=== PATIENT | male | born 1945 | race Caucasian/White ===

== ENCOUNTER 2017-03-06 16:07 | Emergency (ER) | payer MEDICARE, OTHER ==
[~2017-03-06] VITALS: Ht 175.3 cm; Wt 89.0 kg
[~2017-03-06 16:07] MED LIST: AMOX500T PO; BUPR-197 PO; CALTTAB PO; CARB0.5D16 EACH EYE; LACTCAP7 PO; LORA1TAB PO; NAPR-573 PO; OMEG100037 PO; PARO40TA PO; SLO-500T2 PO; SUPETAB30 PO; TERA2CAP3 PO; VITATAB11 PO; ZOLP10TA3 PO
[2017-03-06 16:08] VITALS: BP 160/77; PULSE 97; RESP 15; TEMP 97.3; O2SAT 99
[2017-03-06] MEDS ORDERED: CALC1TAB12 PO (16:27)
[2017-03-06] MEDS ORDERED: MULTTAB67 PO (16:27)
[2017-03-06] MEDS ORDERED: BUPR75TA PO (16:27)
[2017-03-06] MEDS ORDERED: LORA1TAB12 PO (16:27)
[2017-03-06] MEDS ORDERED: FISHCAP4 PO (16:27)
[2017-03-06] MEDS ORDERED: VENL75TA PO (16:27)
[2017-03-06] MEDS ORDERED: TAMS0.4C4 PO (16:27)
[2017-03-06] MEDS ORDERED: VITACAP7 PO (16:27)
[2017-03-06] MEDS ORDERED: CYCL1TAB29 PO ×2 (16:53→17:00)
[2017-03-06] MEDS ORDERED: MEDR4PAK PO ×2 (16:53→17:00)
--- NOTE | 2017-03-06 16:54 | PD ---
HPI Chief Complaint: Back/ Neck Pain or Injury Time Seen by Provider: 16:33 Travel History International Travel<30 days: No Contact w/Intl Traveler<30days: No Traveled to known affect area: No History of Present Illness HPI Patient is a 72-year-old male presents emergency department with complaint of back pain. Patient states that he is at approximately 1-2 weeks of low back pain, right sided. This is somewhat burning and throbbing in nature. It radiates actually down the contralateral left leg with the anterior thigh burning, zinging type pain. Patient has been seeing chiropractor without much improvement of his symptoms. He was seen at the [facility] today and he was referred here for potential lower back imaging. He has not had any fevers, chills, bowel or bladder symptoms, denies IV drug abuse. PFSH Past Medical History Arthritis: Yes Anxiety: Yes (PTSD) Depression: Yes Heart Rhythm Problems: No Cancer: Yes (SKIN CA) Cardiac Catheterization: Yes Cardiovascular Problems: Yes (VALVE REPAIR) High Cholesterol: Yes Chest Pain: Yes Congestive Heart Failure: No Diabetes: No Diminished Hearing: No Headaches: Yes Insomnia: Yes Kidney Stones: Yes Ulcer: Yes Tetanus Vaccination: < 5 Years ?: Not Past Surgical History Cardiac Surgery: Yes (VALVE REPAIR) Coronary Artery Bypass Graft: No Other Surgery: Yes (RIGHT ARM SURGERY-1970'S) Family History Family Myocardial Infarction: Yes (MOTHER) Social History Alcohol Use: Yes (RARE) Tobacco Use: No Substance Use: No Allergies-Medications (Allergen,Severity, Reaction): Coded Allergies: HMG-CoA Reductase Inhibitors (Verified Allergy, Severe, LIVER TROUBLE, ) Reported Meds & Prescriptions Reported Meds & Active Scripts Active Reported B Complex (B-Complex Vitamins) 1 Cap 1 Cap PO DAILY Multiple Vitamin 1 Tab 1 Tab PO DAILY Bupropion HCl 75 Mg Tab 75 Mg PO BID Fish Oil + D3 (Fish Oil-Cholecalciferol) 1,200-1,000 Mg-Unit Cap 1 Cap PO DAILY Calcium 500 +D (Calcium Carbonate-Cholecalciferol) 500-400 Mg-Unit Tab 1 Tab PO BID Effexor (Venlafaxine HCl) 75 Mg Tab 75 Mg PO DAILY Tamsulosin (Tamsulosin HCl) 0.4 Mg Cap 0.4 Mg PO HS Lorazepam 1 Mg Tab 1 Mg PO Q8H PRN Review of Systems Except as stated in HPI: all other systems reviewed are Neg Physical Exam Narrative GENERAL: Well-appearing pleasant elderly male in no acute distress SKIN: Focused skin assessment warm/dry. HEAD: Normocephalic. EYES: No scleral icterus. No injection or drainage. ENT: Mucous membranes pink and moist. NECK: Supple CARDIOVASCULAR: Regular rate and rhythm. RESPIRATORY: No accessory muscle use. GASTROINTESTINAL: Obese MUSCULOSKELETAL: No midline tenderness to palpation of thoracic or lumbar spine. Patient has reproducible tenderness to palpation over the right SI joint without palpable deformity, swelling. Positive straight leg raise bilaterally right greater than left. Good distal sensation, pulses, strength. Normal gait NEUROLOGICAL: Awake and alert. Normal speech. PSYCHIATRIC: Appropriate mood and affect; insight and judgment normal. Data Data Last Documented VS Vital Signs Date Time Temp Pulse Resp B/P Pulse Ox O2 Delivery O2 Flow Rate FiO2 03/06/17 16:08 97.3 97 15 160/77 99 MDM Medical Decision Making Medical Screen Exam Complete: Yes Emergency Medical Condition: Yes Medical Record Reviewed: Yes Differential Diagnosis 72-year-old male here with complaint of right lumbar back pain with radiation down the left leg, and burning in nature. Symptoms sound early classic for sciatica, lumbar radiculopathy. No red flags or warning signs to warrant any imaging. Narrative Course Patient was reassured and will be discharged home with short course of steroids and muscle relaxers. Diagnosis Primary Impression: Sciatica Qualified Code: M54.30 - Sciatica, unspecified laterality Referrals: Primary Care Physician as needed Additional Instructions: Steroids and muscle relaxers as prescribed. Continue Motrin, ice/heat as needed. Med/Other Pt SpecificInfo: Prescription(s) given Scripts Methylprednisolone Dosepak (Medrol Dosepak)4 Mg Dspk4 Mg PO DIRECTED #1 DSPK Ref 0 Per Pharmacist direction Prov:Amber Walker MD 03/06/17 Cyclobenzaprine (Flexeril)10 Mg Tab10 Mg PO TID PRN (SPASM) #21 TAB Ref 0 Prov:Amber Walker MD 03/06/17 Disposition: 01 DISCHARGE HOME Condition: Stable Amber Walker MD March 06, 2017 16:54
== END 2017-03-06 17:00 | disposition home or self-care (01) ==
LOC: NEPD 16:07
DX: M54.41 Lumbago with sciatica, right side (principal); E78.00 Pure hypercholesterolemia, unspecified; Z87.442 Personal history of urinary calculi; F43.10 Post-traumatic stress disorder, unspecified
CPT/HCPCS: 99284